=== PATIENT | female | born 1990 ===

== ENCOUNTER 2023-12-19 19:43 | Emergency (ER) | payer SELFPAY ==
[2023-12-19] MEDS ORDERED: Sodium Chloride 0.9% 2.5 ML Syringe FLUSH PRN (19:52)
[2023-12-19] MEDS ORDERED: Sodium Chloride 0.9% 10 ML Syringe FLUSH PRN (19:52)
[2023-12-19 20:05] LABS: BASOPHILS ABSOLUTE AUTO 0.06 K/uL (0.00-0.20); BASOPHILS PERCENT AUTO 0.6 % (0.0-1.0); EOSINOPHILS ABSOLUTE AUTO 0.21 K/uL (0.00-0.45); EOSINOPHILS PERCENT AUTO 2.2 % (0.0-6.0); HEMATOCRIT 39.5 % (37.0-47.0); HEMOGLOBIN 13.3 g/dL (12.0-16.0); IMMATURE GRAN ABSOLUTE AUTO 0.03 K/uL (0.00-0.05); IMMATURE GRAN PERCENT AUTO 0.3 % (0.0-0.4); LYMPHOCYTES ABSOLUTE AUTO 3.29 K/uL (1.00-4.80); LYMPHOCYTES PERCENT AUTO 34.1 % (24.0-44.0); MEAN CORPUSCULAR HEMOGLOBIN 29.2 pg (28.0-32.0); MEAN CORPUSCULAR HGB CONC 33.7 g/dL (32.0-36.0); MEAN CORPUSCULAR VOLUME 86.6 fL (83.0-99.0); MEAN PLATELET VOLUME 10.7 fL (9.4-12.3); MONOCYTES ABSOLUTE AUTO 0.52 K/uL (0.00-0.80); MONOCYTES PERCENT AUTO 5.4 % (0.0-8.0); NEUTROPHILS ABSOLUTE AUTO 5.54 K/uL (1.80-7.70); NEUTROPHILS PERCENT AUTO 57.4 % (41.0-71.0); PLATELET COUNT,PLT 258 K/uL (150-400); RED BLOOD CELL COUNT 4.56 M/uL (4.10-5.30); WHITE BLOOD CELL COUNT,WBC 9.65 K/uL (3.9-11.3)
[2023-12-19] MEDS ORDERED: Ketorolac 30 MG/ML SDV IVPUSH ONE (20:08)
[2023-12-19 20:42] LABS: A/G RATIO 0.9 (0.9-1.6); ALANINE AMINOTRANSFERASE,ALT 25 IU/L (14-63); ALBUMIN 3.8 g/dL (3.4-5.0); ALKALINE PHOSPHATASE 104 U/L (46-116); ASPARTATE AMNIOTRANSFERASE,AST 18 IU/L (15-37); BILIRUBIN TOTAL 0.2 mg/dL (0.2-1.0); BLOOD UREA NITROGEN,BUN 12 mg/dL (7.0-18.0); CALCIUM 8.9 mg/dL (8.5-10.1); CARBON DIOXIDE,CO2 27.9 mmol/L (21.0-32.0); CHLORIDE,CL 104 mmol/L (98-107); CREATININE 0.9 mg/dL (0.6-1.0); GLUCOSE RANDOM 98 mg/dL (74-106); POTASSIUM,K 3.8 mmol/L (3.5-5.1); PROTEIN TOTAL,TP 7.8 g/dL (6.4-8.2); SODIUM,NA 141 mmol/L (136-145)
[2023-12-19 20:43] LABS: ESTIMATED GFR 87 mL/min (>60)
== END 2023-12-19 21:11 | disposition home or self-care (01) ==
LOC: MW.ED 19:43
DX: R07.9 Chest pain, unspecified (principal)
CPT/HCPCS: 36415; 71046; 80053; 84484; 85025; 93005; 96374; 99285; J1885; J3490; 93010; 99284